=== PATIENT | female | born 1965 | race Caucasian/White ===

== ENCOUNTER 2016-06-29 17:56 | Emergency (ER) | payer MEDICARE, OTHER | END 2016-06-29 21:20 | disposition home or self-care (01) | LOC: ER1 17:56 | DX: S83.91XA Sprain of unspecified site of right knee, initial encounter (principal); S93.401A Sprain of unspecified ligament of right ankle, initial encounter; F17.210 Nicotine dependence, cigarettes, uncomplicated; W19.XXXA Unspecified fall, initial encounter; Z79.899 Other long term (current) drug therapy | CPT/HCPCS: 73564; 73610; 96372; 99283; J1885 ==